=== PATIENT | male | born 1995 | race African-American/Black ===

== ENCOUNTER 2019-01-18 23:43 | Emergency (ER) | payer OTHER ==
[~2019-01-18] VITALS: Ht 170.2 cm; Wt 72.7 kg
[2019-01-19] MEDS ORDERED: CLEOCIN300 MG PO (00:15)
[2019-01-19] MEDS ORDERED: LORTAB 1010 MG PO (00:15)
[2019-01-19 01:00] VITALS: BP 129/77
== END 2019-01-19 01:00 | disposition home or self-care (01) | DRG 159 ==
LOC: ED 23:43
DX: K04.7 Periapical abscess without sinus (principal)

== ENCOUNTER 2019-01-27 15:49 | Emergency (ER) | payer OTHER ==
[~2019-01-27] VITALS: Ht 170.2 cm; Wt 72.0 kg
[~2019-01-27 15:49] MED LIST: CLEOCIN300 MG PO; LORTAB 1010 MG PO
[2019-01-27] MEDS ORDERED: PROTONIX40 M2 PO (17:33)
[2019-01-27 17:40] VITALS: BP 119/74
== END 2019-01-27 17:40 | disposition home or self-care (01) | DRG 392 ==
LOC: ED 15:49
DX: R10.13 Epigastric pain (principal)